=== PATIENT | male | born 2005 | race Asian ===

== ENCOUNTER 2023-12-09 17:30 | Emergency (ER) | payer OTHER, SELFPAY ==
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
[2023-12-09 17:46] VITALS: BP 131/67; PULSE 71; RESP 16; TEMP 37.1; O2SAT 98
== END 2023-12-09 18:08 | disposition home or self-care (01) ==
PROVIDERS: Emergency Provider Nurse Practitioner
DX: S01.81XA Laceration without foreign body of other part of head, initial encounter (principal); V49.40XA Driver injured in collision with unspecified motor vehicles in traffic accident, initial encounter
CPT/HCPCS: 99212; G0463